=== PATIENT | female | born 1965 | race Caucasian/White ===

== ENCOUNTER 2017-06-25 17:27 | Emergency (ER) | payer MEDICAID, OTHER ==
[2017-06-25 18:27] VITALS: BP 137/72; PULSE 74; RESP 18; TEMP 98.2
--- NOTE | 2017-06-25 18:38 | ED ---
General Adult HPI - General Chief complaint: Fall Stated complaint: Right foot pain Time Seen by Provider: 06/25/17 18:02 Source: patient, RN notes reviewed Mode of arrival: wheelchair Limitations: no limitations, language barrier - History of Present Illness Initial comments: 51-year-old female presents for right foot pain after a trip and fall today and ice. She states it hurts along the toes of her foot. She states there is no other injury. She denies any head injury neck pain any arm pain. She states she has pain when she walks. She states this happened at work. She denies any other injuries at this time. Her pain is moderate.Patient denies any recent fever, chills, shortness of breath, chest pain, back pain, abdominal pain, nausea vomiting, numbness or tingling, dysuria or hematuria, constipation or diarrhea, headaches or visual changes, or any other current symptoms. - Related Data Home Medications Medication Instructions Recorded Confirmed Doxycycline [Vibramycin] 100 mg PO DAILY 06/18/15 06/25/17 Naproxen Sodium [Aleve] 440 mg PO DAILY 06/18/15 06/25/17 Sertraline [Zoloft] 200 mg PO DAILY 06/18/15 06/25/17 Previous Rx's Medication Instructions Recorded Hydrocodone/Acetaminophen [[place]uburn 1 each PO Q6HR PRN #5 tab 06/25/17 5-325] Allergies Allergy/AdvReac Type Severity Reaction Status Date / Time NEOPRENE AdvReac Rash/Hives Uncoded 06/25/17 18:27 Review of Systems ROS Statement: Those systems with pertinent positive or pertinent negative responses have been documented in the HPI. ROS Other: All systems not noted in ROS Statement are negative. Past Medical History Past Medical History: No Reported History, Osteoarthritis (OA) History of Any Multi-Drug Resistant Organisms: None Reported Past Surgical History: Orthopedic Surgery Additional Past Surgical History / Comment(s): RIGHT KNEE ARTHROSCOPIC Past Anesthesia/Blood Transfusion Reactions: No Reported Reaction Past Psychological History: Depression Smoking Status: Former smoker - Past Family History Mother Family Medical History: No Reported History General Exam - General Exam Comments Initial Comments: General: The patient is awake and alert, in no distress, and does not appear acutely ill. Neck: The neck is supple, there is no tenderness. Cardiovascular: There is a regular rate and rhythm. No murmur, rub or gallop is appreciated. Respiratory: Lungs are clear to auscultation, respirations are non-labored, breath sounds are equal. No wheezes, stridor, rales, or rhonchi. Musculoskeletal: Sensation intact with 2+ pulses throughout the right lower extremity. Full range motion of right ankle and foot.. Tenderness to palpation of the fourth and fifth metacarpal. Patient has full range motion. No swelling no bruising no deformity. Neurological: CN II-XII intact, There are no obvious motor or sensory deficits. Coordination appears grossly intact. Speech is normal. Skin: Skin is warm and dry and no rashes or lesions are noted. Psychiatric: Normal mood and affect. Limitations: no limitations, language barrier Course Vital Signs 06/25/17 18:23 Temperature 98.2 F Pulse Rate 74 Respiratory 18 Rate Blood Pressure 137/72 O2 Sat by Pulse 97 Oximetry Procedures - Orthopedic Splinting/Casting Injury #1 Side: right Lower Extremity Injury Location: short leg, foot Lower Extremity Immobilizer: posterior splint Medical Decision Making - Medical Decision Making 51-year-old female presents for right foot pain after trip and fall. At this time patient underwent an x-ray that does show metacarpal fracture. This time she does have crutches at home. This time we discussed close follow-up with her doctor. We discussed return parameters all questions. Patient stated that she understood and she is agreement this plan. All questions have been answered. She'll be discharged. - Radiology Data Radiology results: report reviewed, image reviewed Disposition Clinical Impression: Fracture of metatarsal of right foot, closed Disposition: HOME SELF-CARE Condition: Stable Instructions: Foot Fracture in Adults (ED) Additional Instructions: Please use medication as discussed. Please follow up with family doctor if symptoms have not improved over the next two days. Please return to the emergency room if your symptoms increase or worsen or for any other concerns. Prescriptions: Hydrocodone/Acetaminophen [Auburn 5-325] 1 each PO Q6HR PRN #5 tab PRN Reason: Pain Referrals: Easton Ford MD [Primary Care Provider] - 1-2 days Marco Breaux MD [STAFF PHYSICIAN] - 1-2 days Time of Disposition: 19:05
--- NOTE | 2017-06-25 18:55 | XR ---
EXAMINATION TYPE: XR foot complete RT DATE OF EXAM: 06/25/2017 CLINICAL HISTORY: Right metatarsal pain after injury TECHNIQUE: Frontal, lateral, and oblique images of the right foot are obtained. COMPARISON: None FINDINGS: There are medially angulated, noncomminuted, nonintra-articular fractures of the distal myles physes of the second through fourth metatarsals with overlying soft tissue swelling. Accessory ossicl e is seen near the fifth metatarsal head. No radiopaque foreign body. Osseous mineralization is withi n normal limits. IMPRESSION: Medially angulated, noncomminuted, nonintra-articular fractures of the distal diaphyses o f the second through fourth metatarsals with overlying soft tissue swelling.
== END 2017-06-25 19:15 | disposition home or self-care (01) ==
LOC: EC 17:27
DX: S92.301A Fracture of unspecified metatarsal bone(s), right foot, initial encounter for closed fracture (principal); M19.90 Unspecified osteoarthritis, unspecified site; F32.9 Major depressive disorder, single episode, unspecified; Z87.891 Personal history of nicotine dependence; Z79.1 Long term (current) use of non-steroidal anti-inflammatories (NSAID); Z79.899 Other long term (current) drug therapy; Z91.048 Other nonmedicinal substance allergy status; W01.0XXA Fall on same level from slipping, tripping and stumbling without subsequent striking against object, initial encounter; Y92.69 Other specified industrial and construction area as the place of occurrence of the external cause; Y99.0 Civilian activity done for income or pay
CPT/HCPCS: 29515; 99283

== ENCOUNTER → 2017-09-07 | Outpatient (CLI) | payer MEDICAID ==
[2017-09-07 08:12] LABS: Basophils % (A) 1 %; Eosinophils # (A) 0.1 k/uL (0-0.7); Eosinophils % (A) 2 %; HCT 36.9 % (34.0-46.0); HGB 12.3 gm/dL (11.4-16.0); Lymphocytes # (A) 1.6 k/uL (1.0-4.8); Lymphocytes % (A) 31 %; MCH 26.7 pg (25.0-35.0); MCHC 33.4 g/dL (31.0-37.0); Mean Platelet Volume 7.1; Monocytes # (A) 0.3 k/uL (0-1.0); Monocytes % (A) 5 %; Neutrophils % (A) 59 %; Platelet Count 187 k/uL (150-450); RBC 4.61 m/uL (3.80-5.40); WBC 5.1 k/uL (3.8-10.6)
[2017-09-07 10:36] LABS: ALT 31 U/L (9-52); AST 24 U/L (14-36); Albumin 4.4 g/dL (3.5-5.0); Alkaline Phosphatase 73 U/L (38-126); Anion Gap 15 mmol/L; Blood Urea Nitrogen 20 mg/dL (7-17); C Reactive Protein <5.0 mg/L (<10.0); Calcium 9.9 mg/dL (8.4-10.2); Carbon Dioxide 26 mmol/L (22-30); Chloride 102 mmol/L (98-107); Cholesterol 205 mg/dL (<200); Glucose 110 mg/dL (74-99); HDL Cholesterol 48 mg/dL (40-60); LDL Cholesterol,Calculated 126 mg/dL (0-99); Potassium 4.6 mmol/L (3.5-5.1); Sodium 143 mmol/L (137-145); Total Bilirubin 0.3 mg/dL (0.2-1.3); Total Protein 7.3 g/dL (6.3-8.2); Triglycerides 155 mg/dL (<150)
[2017-09-07 13:04] LABS: Erythrocyte Sedimentation Rate 15 mm/hr (0-20)
== END | disposition home or self-care (01) ==
LOC: LABWHC1 07:16
PROVIDERS: ATTEND Family Medicine
DX: F43.21 Adjustment disorder with depressed mood (principal); R53.83 Other fatigue
CPT/HCPCS: 36415; 80053; 80061; 84443; 85025; 85652; 86140

== ENCOUNTER → 2018-05-02 | Outpatient (CLI) | payer MEDICAID | LOC: LABWHC1 10:58 | PROVIDERS: ATTEND Family Medicine | DX: M19.90 Unspecified osteoarthritis, unspecified site (principal); M25.50 Pain in unspecified joint | CPT/HCPCS: 36415; 85652; 86431 ==

== ENCOUNTER → 2018-12-06 | Outpatient (CLI) | payer MEDICAID ==
[2018-12-06 09:37] LABS: Basophils % (A) 1 %; Eosinophils # (A) 0.1 k/uL (0-0.7); Eosinophils % (A) 2 %; HCT 37.1 % (34.0-46.0); HGB 11.9 gm/dL (11.4-16.0); Lymphocytes # (A) 1.6 k/uL (1.0-4.8); Lymphocytes % (A) 32 %; MCH 25.6 pg (25.0-35.0); MCHC 32.2 g/dL (31.0-37.0); MCV 79.6 fL (80.0-100.0); Mean Platelet Volume 6.7; Monocytes # (A) 0.3 k/uL (0-1.0); Monocytes % (A) 6 %; Neutrophils # (A) 2.9 k/uL (1.3-7.7); Neutrophils % (A) 57 %; Platelet Count 187 k/uL (150-450); RBC 4.66 m/uL (3.80-5.40); RDW 14.9 % (11.5-15.5); WBC 5.1 k/uL (3.8-10.6)
[2018-12-06 16:56] LABS: African American GFR (CKD) 118.9 (60.0-200.0); BUN/Creat Ratio 28.33 Ratio (12.00-20.00); Calcium 9.8 mg/dL (8.7-10.3); Potassium 4.9 mmol/L (3.5-5.5)
== END | disposition home or self-care (01) ==
LOC: LABWHC1 08:54
PROVIDERS: ATTEND Family Medicine
DX: E11.9 Type 2 diabetes mellitus without complications (principal); E78.00 Pure hypercholesterolemia, unspecified; Z79.899 Other long term (current) drug therapy
CPT/HCPCS: 36415; 80048; 80061; 84439; 84450; 84460; 85025

== ENCOUNTER → 2019-07-17 | Outpatient (CLI) | payer MEDICAID ==
[2019-07-17 11:43] LABS: Basophils % (A) 1 %; Eosinophils # (A) 0.1 k/uL (0-0.7); Eosinophils % (A) 2 %; HCT 39.4 % (34.0-46.0); HGB 12.7 gm/dL (11.4-16.0); Lymphocytes # (A) 1.6 k/uL (1.0-4.8); Lymphocytes % (A) 29 %; MCH 26.2 pg (25.0-35.0); MCHC 32.3 g/dL (31.0-37.0); Mean Platelet Volume 7.5; Monocytes # (A) 0.3 k/uL (0-1.0); Monocytes % (A) 6 %; Neutrophils # (A) 3.1 k/uL (1.3-7.7); Neutrophils % (A) 58 %; Platelet Count 197 k/uL (150-450); RBC 4.86 m/uL (3.80-5.40); RDW 14.7 % (11.5-15.5); WBC 5.3 k/uL (3.8-10.6)
[2019-07-17 16:01] LABS: African American GFR (CKD) 118.1 (60.0-200.0); Albumin 4.9 g/dL (3.80-4.90); Albumin/Globulin Ratio 2.33 (1.60-3.17); Anion Gap 9.3 mmol/L (4.00-12.00); BUN/Creat Ratio 18.33 Ratio (12.00-20.00); Calcium 9.8 mg/dL (8.7-10.3); Carbon Dioxide 27.7 mmol/L (21.6-31.8); Chol/HDL Ratio 4.12; Globulin 2.1 g/dL (1.6-3.3); LDL Cholesterol,Calculated 128.6 mg/dL (0.0-131.0); Non-African American GFR(CKD) 101.9 (60.0-200.0); Potassium 4.8 mmol/L (3.5-5.5); Total Bilirubin 0.4 mg/dL (0.3-1.2); VLDL Calculation 27.4 mg/dL (5.00-40.00)
== END | disposition home or self-care (01) ==
LOC: LABWHC1 10:42
PROVIDERS: ATTEND Family Medicine
DX: E78.00 Pure hypercholesterolemia, unspecified (principal); E11.9 Type 2 diabetes mellitus without complications; I10 Essential (primary) hypertension
CPT/HCPCS: 36415; 80053; 80061; 84443; 85025

== ENCOUNTER → 2021-02-02 | Outpatient (CLI) | payer MEDICAID ==
--- NOTE | 2021-02-02 08:25 | US ---
EXAMINATION TYPE: US gallbladder DATE OF EXAM: 02/02/2021 COMPARISON: NONE CLINICAL HISTORY: R19.01 Right upper quadrant abdominal swelling. EXAM MEASUREMENTS: Liver Length: 15.7 cm Gallbladder Wall: 0.1 cm CBD: 0.5 cm Right Kidney: 15.5 x 4.5 x 6.0 cm RUQ pain, patient of large body habitus Pancreas: portions visualized wnl Liver: Increased attenuation Gallbladder: wnl Evidence for sonographic Mai's sign: no CBD: wnl Right Kidney: measures large IMPRESSION: 1. Normal abdomen ultrasound
== END | disposition home or self-care (01) ==
LOC: RADUSWWP 07:40
PROVIDERS: ATTEND Family Medicine
DX: R19.01 Right upper quadrant abdominal swelling, mass and lump (principal)
CPT/HCPCS: 76705

== ENCOUNTER 2021-03-26 12:08 | Emergency (ER) | payer MEDICAID ==
[2021-03-26 12:30] VITALS: RESP 20
[2021-03-26] MEDS ORDERED: HYDROcodone/APAP 5-325MG 1 EACH TAB PO STA (13:20)
[2021-03-26] MEDS ORDERED: DIPH,PERTUS(ACELL)TETVAC-LF 0.5 ML VIAL IM ONE (13:41)
--- NOTE | 2021-03-26 13:43 | ED ---
General Adult HPI - General Chief complaint: Fall Stated complaint: fall - right cheek laceration; right knee pain Time Seen by Provider: 03/26/21 12:35 Source: patient Mode of arrival: wheelchair Limitations: no limitations - History of Present Illness Initial comments: 55-year-old female presents to the emergency room for a chief complaint of fall. Patient was carrying a glass bowl when she tripped over a shoe and fell. Patient hit the right side of her face on the ground. No loss of consciousness. Patient also injured the right knee. States it is painful to walk on.Patient has no other complaints at this time including shortness of breath, chest pain, abdominal pain, nausea or vomiting, headache, or visual changes. - Related Data Home Medications Medication Instructions Recorded Confirmed Doxycycline [Vibramycin] 100 mg PO DAILY 06/18/15 06/25/17 Naproxen Sodium [Aleve] 440 mg PO DAILY 06/18/15 06/25/17 Sertraline [Zoloft] 200 mg PO DAILY 06/18/15 06/25/17 Previous Rx's Medication Instructions Recorded Hydrocodone/Acetaminophen [Buford 1 each PO Q6HR PRN #5 tab 06/25/17 5-325] Doxycycline [Vibramycin] 100 mg PO BID 10 Days #20 capsule 03/26/21 HYDROcodone/APAP 5-325MG [Buford 1 tab PO Q6HR PRN #10 tab 03/26/21 5-325] Allergies Allergy/AdvReac Type Severity Reaction Status Date / Time codeine Allergy Rash/Hives Verified 03/26/21 12:31 Penicillins AdvReac Rash/Hives Verified 03/26/21 14:56 NEOPRENE AdvReac Rash/Hives Uncoded 03/26/21 12:30 Review of Systems ROS Statement: Those systems with pertinent positive or pertinent negative responses have been documented in the HPI. ROS Other: All systems not noted in ROS Statement are negative. Past Medical History Past Medical History: Osteoarthritis (OA) History of Any Multi-Drug Resistant Organisms: None Reported Past Surgical History: Orthopedic Surgery Additional Past Surgical History / Comment(s): RIGHT KNEE ARTHROSCOPIC Past Anesthesia/Blood Transfusion Reactions: No Reported Reaction Past Psychological History: Depression Smoking Status: Former smoker Past Alcohol Use History: Occasional Past Drug Use History: None Reported - Past Family History Mother Family Medical History: No Reported History General Exam Limitations: no limitations General appearance: alert, in no apparent distress Head exam: Present: atraumatic Eye exam: Present: PERRL, EOMI, other (Patient does have right-sided inferior periorbital ecchymosis mild.). Absent: scleral icterus, conjunctival injection, periorbital swelling ENT exam: Present: normal exam, normal oropharynx, mucous membranes moist, other (Ecchymosis of abrasion noted over the right zygomatic bone) Neck exam: Present: normal inspection, full ROM. Absent: tenderness Respiratory exam: Present: normal lung sounds bilaterally. Absent: respiratory distress, wheezes Cardiovascular Exam: Present: regular rate, normal rhythm, normal heart sounds GI/Abdominal exam: Present: soft, normal bowel sounds. Absent: distended, tenderness Course Vital Signs 03/26/21 12:27 Temperature 98.6 F Pulse Rate 82 Respiratory 20 Rate Blood Pressure 140/85 O2 Sat by Pulse 99 Oximetry Medical Decision Making - Medical Decision Making Vitals are stable. Patient is well-appearing. Physical exam is documented. Pt refused pain medication initially. CT brain shows no mass effect or midline shift. No sign of intracranial hemorrhage. CT brain shows mild spondylitic changes in the lower cervical spine. No fracture seen. CT facial bones shows a blowout fracture of the floor of the right bony orbit as above with hemorrhage in the right maxillary sinus and intraorbital air bubbles with hemorrhage at the floor and medial wall of the right bony orbit. Extraocular movements intact. IOP of the right eye is 18, left eye 17. Patient will be started on Augmentin and given ENT referral. X-ray of the right knee showed moderate joint effusion with no sign of fracture. Patient given knee immobilizer and orthopedic referral. Usually discharged home with Buford. Will return here for any worsening symptoms. Case discussed with Dr. Nolasco Disposition Clinical Impression: Orbital floor fracture, Knee joint effusion Disposition: HOME SELF-CARE Condition: Good Instructions (If sedation given, give patient instructions): Facial Fracture (ED), Knee Pain (ED) Additional Instructions: Please take Motrin as needed for pain. Take Buford as needed for severe pain. Do not drive while taking this. Follow-up with your doctor as well as ENT and orthopedics. Return to the emergency room for any worsening symptoms. Prescriptions: HYDROcodone/APAP 5-325MG [Buford 5-325] 1 tab PO Q6HR PRN #10 tab PRN Reason: Pain Doxycycline [Vibramycin] 100 mg PO BID 10 Days #20 capsule Is patient prescribed a controlled substance at d/c from ED?: Yes When asked, does pt state using other controlled substances?: No If prescribed controlled substance>3 days was MAPS reviewed?: Prescribed <3 Days If opioid is for acute pain is fill amount 7 days or less?: Yes If Rx opioid, was Start Talking consent form obtained?: Yes Referrals: Juan Saunders Jr, DO [Primary Care Provider] - 1-2 days Go Moreno MD [STAFF PHYSICIAN] - 1-2 days Josh Evans DO [Doctor of Osteopathic Medicine] - 1-2 days Time of Disposition: 14:52
--- NOTE | 2021-03-26 14:09 | XR ---
Right knee. HISTORY: Trauma. COMPARISON: None. TECHNIQUE: 4 views the right knee were obtained. FINDINGS: There is moderate diffuse osteopenia. There is a moderate joint effusion. There is moderate osteoarthritic change of all 3 compartments of the knee with moderate joint space n arrowing and mild large adrenal osteophyte formation. There is no acute fracture or dislocation. There is no radiopaque foreign body or abnormal soft tissu e calcification. IMPRESSION: 1. No evidence of acute fracture or dislocation. 2. Moderate joint effusion. 3. Osteoarthritic changes within all 3 compartments of the knee.
--- NOTE | 2021-03-26 14:21 | CT ---
EXAMINATION TYPE: CT facial bones wo con DATE OF EXAM: 03/26/2021 COMPARISON: None HISTORY: fall CT DLP: 790.1 mGycm Automated exposure control for dose reduction was used. Images obtained from the bottom of the mandible to the top of the frontal sinuses without contrast. The mandibular ring is intact. Temporomandibular joints are intact. Zygomatic arches appear intact. There is opacification of the right maxillary sinus. There is blowout fracture at the floor of the ri ght bony orbit. There is some depression of the fragment 5 mm with herniation of orbital fat into the right maxillary sinus. There is intraorbital air bubbles at the floor of the right bony orbit. There is some intraorbital hemorrhage along the medial and inferior wall of the right bony orbit and measu res up to 3 mm in thickness. The nasal bone is intact. The external auditory canals appear intact. There is fairly normal aeration of the mastoid sinuses. There is normal aeration of the epitympanic recess bilaterally. IMPRESSION: Blowout fracture of the floor the right bony orbit as above with hemorrhage in the right maxillary si nus and intraorbital air bubbles and hemorrhage at the floor and medial wall of the right bony orbit.
--- NOTE | 2021-03-26 14:26 | CT ---
EXAMINATION TYPE: CT brain cspine wo con DATE OF EXAM: 03/26/2021 COMPARISON: None HISTORY: fall CT DLP: 1219.7 mGycm Automated exposure control for dose reduction was used. Ventricles have normal size. There is no mass effect nor midline shift. There is no sign of intracran ial hemorrhage. Calvarium is intact. There is normal aeration of the mastoid sinuses. There is right orbital blowout fracture that is described in the facial bone CT report. The cervical vertebra have normal alignment. Posterior elements are intact. There is degenerative mil d disc space narrowing and spur formation at C5-6 and C6-7. Facet joints are intact. Prevertebral sof t tissues are intact. Skull base is intact. IMPRESSION: Mild spondylotic changes in the lower cervical spine. No fracture seen.
[2021-03-26] MEDS ORDERED: AMOXIC-POT CLAV 875MG STARTER PACK 2 TAB BTL PO STA (14:47)
[2021-03-26] MEDS ORDERED: ONDANSETRON 4 MG ODT STARTER PACK 2 TAB BTL PO STA (15:08)
[2021-03-26 15:54] VITALS: BP 136/86; PULSE 76; TEMP 98.1
== END 2021-03-26 15:30 | disposition home or self-care (01) ==
LOC: EC 12:08
DX: S02.31XA Fracture of orbital floor, right side, initial encounter for closed fracture (principal); M25.461 Effusion, right knee; Z87.891 Personal history of nicotine dependence; Z23 Encounter for immunization; Z88.0 Allergy status to penicillin; Z88.8 Allergy status to other drugs, medicaments and biological substances; Z88.5 Allergy status to narcotic agent; W18.09XA Striking against other object with subsequent fall, initial encounter; Y93.89 Activity, other specified; Y92.009 Unspecified place in unspecified non-institutional (private) residence as the place of occurrence of the external cause
CPT/HCPCS: 73564; 72125; 70486; 70450; 90715; 99284; 90471; L1830; S0119

== ENCOUNTER → 2021-04-11 | Outpatient (CLI) | payer MEDICAID ==
--- NOTE | 2021-04-11 19:39 | MR ---
EXAMINATION TYPE: MR knee RT wo con DATE OF EXAM: 04/11/2021 COMPARISON: Plain film 04/07/2021 HISTORY: Right knee pain, patellar tendon rupture, and swelling since 03-26-21. TECHNIQUE: Multiplanar, multisequence imaging of the right knee is performed without IV contrast. FINDINGS: There is motion, artifact on the exam MEDIAL MENISCUS: Linear increased signal at the inferior aspect of the medial meniscus posterior horn is noted, sagittal image 10 consistent with tear LATERAL MENISCUS: Posterior horn of the lateral meniscus shows linear increased signal which is thoug ht to extend to the articular surface, sagittal image #27 CRUCIATE LIGAMENTS: Increased signal within the posterior cruciate ligament may be due to chronic deg enerative signal rather than strain. COLLATERAL LIGAMENTS: The medial collateral ligament and lateral collateral ligament complex are inta ct and unremarkable. EXTENSOR MECHANISM: Visualized quadriceps and patellar tendons are intact. EFFUSION: There is a sizable joint effusion present. POPLITEAL CYST: No popliteal/nascimento cyst. TRICOMPARTMENT SPACES: Joint space loss is present at the medial compartment, patellofemoral joint, t ricompartmental marginal spurring CARTILAGE: There is grade 2 to grade III chondromalacia in the medial compartment, lateral compartmen t, grade IV chondromalacia posterior patella with remodeling BONE MARROW SIGNAL: Stellate low signal present within the patella, intermediate signal present on T1 and increased signal in T2-weighted sequences. OTHER: Subcutaneous edema changes present.. Possible ganglion cyst formation posterior to the distal femur, along the levels of the gastrocnemius origins, multilocular cystic changes are present IMPRESSION: There is osteoarthritis, probable degenerative tears of the menisci. Findings consistent with nondisp laced complex patellar fracture.
== END | disposition home or self-care (01) ==
LOC: RADMRIMAIN 17:53
PROVIDERS: ATTEND Orthopaedic Surgery Hand Surgery
DX: M17.11 Unilateral primary osteoarthritis, right knee (principal); M66.88 Spontaneous rupture of other tendons, other sites

== ENCOUNTER → 2021-08-10 | Outpatient (CLI) | payer MEDICAID ==
[2021-08-10 13:57] LABS: Basophils # (A) 0.04 X 10*3/uL (0.00-0.10); Basophils % (A) 0.9 %; Eosinophils # (A) 0.06 X 10*3/uL (0.04-0.35); Eosinophils % (A) 1.3 %; HCT 37.2 % (37.2-46.3); HGB 11.5 g/dL (12.0-15.0); Immature Grans, Automated 0.4 %; Lymphocytes # (A) 1.26 X 10*3/uL (0.90-5.00); Lymphocytes % (A) 28.1 %; MCH 25.3 pg (27.0-32.0); MCHC 30.9 g/dL (32.0-37.0); MCV 81.8 fL (80.0-97.0); Mean Platelet Volume 10.4 fL (9.5-12.2); Monocytes # (A) 0.42 X 10*3/uL (0.20-1.00); Monocytes % (A) 9.4 %; NRBC Per 100 WBC 0 /100 WBCS (0.0-0.0); Neutrophils # (A) 2.69 X 10*3/uL (1.80-7.70); Neutrophils % (A) 59.9 %; Platelet Count 140 X 10*3/uL (140-440); RBC 4.55 X 10*6/uL (4.10-5.20); RDW 14.7 % (11.5-14.5); WBC 4.49 X 10*3/uL (4.50-10.00)
[2021-08-10 14:52] LABS: ALT 16 U/L (8-44); AST 17 U/L (13-35); African American GFR (CKD) 123.6 (60.0-200.0); Albumin 4.6 g/dL (3.8-4.9); Albumin/Globulin Ratio 2.09 (1.60-3.17); Alkaline Phosphatase 90 U/L (41-126); Blood Urea Nitrogen 16.7 mg/dL (9.0-27.0); Calcium 9.4 mg/dL (8.7-10.3); Carbon Dioxide 24.7 mmol/L (20.0-27.5); Chloride 105 mmol/L (96-109); Chol/HDL Ratio 3.44 Ratio; Globulin 2.2 g/dL (1.6-3.3); Glucose 108 mg/dL (70-110); LDL Cholesterol,Calculated 109.9 mg/dL (0.0-131.0); Non-African American GFR(CKD) 106.7 (60.0-200.0); Potassium 4.7 mmol/L (3.5-5.5); Sodium 141 mmol/L (135-145); Total Bilirubin <0.15 mg/dL (0.30-1.20); Total Protein 6.8 g/dL (6.2-8.2); VLDL Calculation 15.02 mg/dL (5.00-40.00)
== END | disposition home or self-care (01) ==
LOC: LABWHC1 07:48
PROVIDERS: ATTEND Nurse Practitioner Family
DX: Z00.00 Encounter for general adult medical examination without abnormal findings (principal); Z13.21 Encounter for screening for nutritional disorder; E11.9 Type 2 diabetes mellitus without complications; E66.01 Morbid (severe) obesity due to excess calories; Z68.35 Body mass index [BMI] 35.0-35.9, adult
CPT/HCPCS: 36415; 80053; 80061; 82306; 84439; 84443; 85025

== ENCOUNTER → 2021-09-23 | Outpatient (CLI) | payer MEDICAID ==
--- NOTE | 2021-09-26 11:51 | MM ---
Reason for exam: screening (asymptomatic). Last mammogram was performed 7 years and 6 months ago. History: Patient is postmenopausal and is nulliparous. Physical Findings: A clinical breast exam by your physician is recommended on an annual basis and results should be correlated with mammographic findings. MG Screening Mammo w CAD Bilateral CC and MLO view(s) were taken. Prior study comparison: April 03, 2014, bilateral MG diagnostic mammo w CAD JASMIN. April 07, 2010, left breast mammogram dig work up. The breast tissue is heterogeneously dense. This may lower the sensitivity of mammography. There are benign appearing round calcifications bilaterally. There is no discrete abnormality. ASSESSMENT: Benign, BI-RAD 2 RECOMMENDATION: Routine screening mammogram of both breasts in 1 year.
== END | disposition home or self-care (01) ==
LOC: RADMAMWWP 06:52
PROVIDERS: ATTEND Family Medicine
DX: Z12.31 Encounter for screening mammogram for malignant neoplasm of breast (principal); Z78.0 Asymptomatic menopausal state
CPT/HCPCS: 77067

== ENCOUNTER → 2021-12-15 | Day surgery (SDC) | payer MEDICAID ==
[2021-12-13 16:03] VITALS: BMI 35.8
[~2021-12-15] MED LIST: DEXAMETHASONE SOD PHOSPHATE 4 MG/ML 1 ML VIAL IV ONE; GLYCOPYRROLATE 0.2 MG/ML 2 ML VIAL ONE; HYDROmorphone 0.5 MG/0.5 ML SYRINGE IVP PRN; LACTATED RINGERS 1,000 ML IV ONE; LACTATED RINGERS 1,000 ML IV SCH; LIDOCAINE 2% INJ 20 MG/ML (2 ML VIAL) ONE; ONDANSETRON 4 MG/2 ML VIAL IVP ONE; PROPOFOL 10 MG/ML 20 ML VIAL IV ONE
[2021-12-15 06:50] VITALS: TEMP 97.8
[2021-12-15 06:59] LABS: Glucose,Whole Blood 105 mg/dL (70-110)
--- NOTE | 2021-12-15 07:23 | P.GSHP ---
History of Present Illness H&P Date: 12/15/21 CHIEF COMPLAINT: Colon screen HISTORY OF PRESENT ILLNESS: The patient is a 56-year-old female who presents for colon screen. Lower endoscopy was offered for further evaluation and management. PAST MEDICAL HISTORY: Please see list. PAST SURGICAL HISTORY: Please see list. MEDICATIONS: Please see list. ALLERGIES: Please see list. SOCIAL HISTORY: No illicit drug use FAMILY HISTORY: No reports of Crohn disease or ulcerative colitis. REVIEW OF ORGAN SYSTEMS: CONSTITUTIONAL: No reports of fevers or chills. PHYSICAL EXAM: VITAL SIGNS: Stable GENERAL: Well-developed pleasant in no acute distress. HEENT: No scleral icterus. Extraocular movements grossly intact. Moist buccal mucosa. NECK: Supple without lymphadenopathy. CHEST: Unlabored respirations. Equal bilateral excursions. CARDIOVASCULAR: Regular rate and rhythm. Distal 2+ pulses. ABDOMEN: Soft, nontender, nondistended. MUSCULOSKELETAL: No clubbing, cyanosis, or edema. ASSESSMENT: 1. Colon screen. PLAN: 1. Recommend proceeding with a lower endoscopy Past Medical History Past Medical History: Osteoarthritis (OA) Additional Past Medical History / Comment(s): "borderline diabetes", Covid infection Apr 2021-received monoclonal antibodies. History of Any Multi-Drug Resistant Organisms: None Reported Past Surgical History: Orthopedic Surgery Additional Past Surgical History / Comment(s): RIGHT KNEE ARTHROSCOPIC Past Anesthesia/Blood Transfusion Reactions: No Reported Reaction Smoking Status: Former smoker - Past Family History Mother Family Medical History: No Reported History Additional Family Medical History / Comment(s): GI bleed Brother(s) Additional Family Medical History / Comment(s): COVID . Medications and Allergies Home Medications Medication Instructions Recorded Confirmed Type Sertraline [Zoloft] 100 mg PO BID 06/18/15 12/13/21 History Doxycycline [Vibramycin] 100 mg PO BID 10 Days #20 capsule 03/26/21 12/13/21 Rx Acetaminophen Tab [Tylenol Tab] 1,000 mg PO Q6HR PRN 12/13/21 12/13/21 History metFORMIN HCL 500 mg PO HS 12/13/21 12/13/21 History Allergies Allergy/AdvReac Type Severity Reaction Status Date / Time codeine Allergy Rash/Hives Verified 12/13/21 15:53 Penicillins AdvReac Rash/Hives Verified 12/13/21 15:53 NEOPRENE AdvReac Rash/Hives Uncoded 12/13/21 15:53 Surgical - Exam Vital Signs Temp Pulse Resp BP Pulse Ox 97.8 F 80 18 146/76 98 12/15/21 06:49 12/15/21 06:49 12/15/21 06:49 12/15/21 06:49 12/15/21 06:49
[2021-12-15 07:52] VITALS: RESP 16
--- NOTE | 2021-12-15 07:53 | P.PCN ---
Date of Procedure: 12/15/21 Description of Procedure: PREOPERATIVE DIAGNOSIS: Colonoscopy screening. POSTOPERATIVE DIAGNOSIS: Colonoscopy screening. Diverticulosis, scattered. OPERATION: Colonoscopy to the cecum, ileocecal valve and appendiceal orifice. SURGEON: Amberly Castano MD. ANESTHESIA: MAC. INDICATIONS: The patient is a 56-year-old female who presents for colonoscopy screening. Benefits and risks were described and informed consent was obtained. DESCRIPTION OF PROCEDURE: The patient had undergone Sutab prep. The patient had been brought into the operating room and laid in the left lateral decubitus position. After adequate intravenous sedation, the rectum was examined with 2% lidocaine jelly. No external hemorrhoids were encountered. The rectal tone was within normal limits. No lesions were palpated in the rectal vault. An Olympus colonoscope was advanced until the cecum, ileocecal valve and appendiceal orifice were clearly viewed. The prep was excellent. Scattered diverticulosis was encountered. No colonic polyps were found. No evidence of focal colitis was found. Retroflexion of the scope demonstrated grade 1 internal hemorrhoids without active bleeding or inflammation. The colon was desufflated. The patient had tolerated the procedure well. Withdrawal time was over 6 minutes. FINDINGS: Aronchick preparation quality scale 1 (1-5) Internal hemorrhoids, grade 1 No external prolapsed hemorrhoids. No arteriovenous malformations. No adenomatous polyps. No focal colitis. RECOMMENDATIONS: Lower endoscopy in 10 years, 2031 Plan - Discharge Summary Discharge Rx Participant: No New Discharge Prescriptions: Continue Sertraline [Zoloft] 100 mg PO BID Acetaminophen Tab [Tylenol] 1,000 mg PO Q6HR PRN PRN Reason: Pain Doxycycline [Vibramycin] 100 mg PO BID 10 Days #20 capsule metFORMIN HCL 500 mg PO HS Discharge Medication List Sertraline [Zoloft] 100 mg PO BID 06/18/15 [History] Doxycycline [Vibramycin] 100 mg PO BID 10 Days #20 capsule 03/26/21 [Rx] Acetaminophen Tab [Tylenol] 1,000 mg PO Q6HR PRN 12/13/21 [History] metFORMIN HCL 500 mg PO HS 12/13/21 [History] Follow up Appointment(s)/Referral(s): Amberly Castano MD [STAFF PHYSICIAN] - As Needed Patient Instructions/Handouts: *Surgery [facility] - (Anesthesia) Endoscopy Discharge Instructions Activity/Diet/Wound Care/Special Instructions: Repeat colonoscopy in 10 years, 2031 Discharge Disposition: HOME SELF-CARE
[2021-12-15 08:06] VITALS: BP 113/74; PULSE 69
== END | disposition home or self-care (01) ==
LOC: ORWHC2ENDO 06:37
PROVIDERS: ATTEND Surgery Plastic and Reconstructive Surgery
DX: Z12.11 Encounter for screening for malignant neoplasm of colon (principal); K57.30 Diverticulosis of large intestine without perforation or abscess without bleeding; K64.0 First degree hemorrhoids; Q27.33 Arteriovenous malformation of digestive system vessel; M19.90 Unspecified osteoarthritis, unspecified site; R73.03 Prediabetes; Z86.16 Personal history of COVID-19; Z87.891 Personal history of nicotine dependence; Z79.899 Other long term (current) drug therapy; Z79.84 Long term (current) use of oral hypoglycemic drugs; Z88.0 Allergy status to penicillin; Z88.5 Allergy status to narcotic agent; Z91.09 Other allergy status, other than to drugs and biological substances; F32.A Depression, unspecified
CPT/HCPCS: 45378; J2704; J2001

== ENCOUNTER → 2022-05-31 | Outpatient (CLI) | payer MEDICAID ==
[2022-05-31 20:26] LABS: African American GFR (CKD) 116.4 (60.0-200.0); Albumin 4.6 g/dL (3.8-4.9); Albumin/Globulin Ratio 1.64 (1.60-3.17); Anion Gap 9.8 mmol/L (10.00-18.00); BUN/Creat Ratio 15.33 Ratio (12.00-20.00); Blood Urea Nitrogen 9.2 mg/dL (9.0-27.0); Calcium 9.6 mg/dL (8.7-10.3); Carbon Dioxide 27.2 mmol/L (20.0-27.5); Globulin 2.8 g/dL (1.6-3.3); Non-African American GFR(CKD) 100.5 (60.0-200.0); Potassium 4.5 mmol/L (3.5-5.5); Total Bilirubin 0.3 mg/dL (0.30-1.20); Total Protein 7.4 g/dL (6.2-8.2)
== END | disposition home or self-care (01) ==
LOC: LABWHC1 10:48
PROVIDERS: ATTEND Nurse Practitioner Family
DX: E11.9 Type 2 diabetes mellitus without complications (principal)
CPT/HCPCS: 36415; 80053

== ENCOUNTER → 2022-09-06 | Outpatient (CLI) | payer MEDICAID ==
[2022-09-06 11:00] LABS: Basophils # (A) 0.07 X 10*3/uL (0.00-0.10); Basophils % (A) 1.3 %; Eosinophils # (A) 0.16 X 10*3/uL (0.04-0.35); Eosinophils % (A) 2.9 %; HGB 11.7 g/dL (12.0-15.0); Immature Grans, Automated 0.4 %; Lymphocytes # (A) 1.53 X 10*3/uL (0.90-5.00); Lymphocytes % (A) 27.4 %; MCH 25.2 pg (27.0-32.0); MCHC 30.8 g/dL (32.0-37.0); MCV 81.9 fL (80.0-97.0); Monocytes # (A) 0.57 X 10*3/uL (0.20-1.00); Monocytes % (A) 10.2 %; NRBC Per 100 WBC 0 /100 WBCS (0.0-0.0); Neutrophils # (A) 3.24 X 10*3/uL (1.80-7.70); Neutrophils % (A) 57.8 %; Platelet Count 163 X 10*3/uL (140-440); RBC 4.64 X 10*6/uL (4.10-5.20); RDW 15.2 % (11.5-14.5); WBC 5.59 X 10*3/uL (4.50-10.00)
[2022-09-06 11:20] LABS: ALT 29 U/L (8-44); AST 23 U/L (13-35); African American GFR (CKD) 113.8 (60.0-200.0); Albumin 4.8 g/dL (3.8-4.9); Albumin/Globulin Ratio 2.06 (1.60-3.17); Alkaline Phosphatase 88 U/L (41-126); BUN/Creat Ratio 23.65 Ratio (12.00-20.00); Blood Urea Nitrogen 14.9 mg/dL (9.0-27.0); Calcium 9.5 mg/dL (8.7-10.3); Carbon Dioxide 26.2 mmol/L (20.0-27.5); Chloride 103 mmol/L (96-109); Chol/HDL Ratio 2.88 Ratio; Globulin 2.3 g/dL (1.6-3.3); Glucose 130 mg/dL (70-110); Non-African American GFR(CKD) 98.2 (60.0-200.0); Potassium 4.7 mmol/L (3.5-5.5); Sodium 140 mmol/L (135-145); Total Protein 7.1 g/dL (6.2-8.2)
== END | disposition home or self-care (01) ==
LOC: LABWHC1 07:32
PROVIDERS: ATTEND Nurse Practitioner Family
DX: Z00.00 Encounter for general adult medical examination without abnormal findings (principal); E66.01 Morbid (severe) obesity due to excess calories; E11.9 Type 2 diabetes mellitus without complications; E55.9 Vitamin D deficiency, unspecified; Z68.38 Body mass index [BMI] 38.0-38.9, adult
CPT/HCPCS: 36415; 80053; 80061; 82306; 83036; 84439; 84443; 85025

== ENCOUNTER 2022-11-29 09:50 | Emergency (ER) | payer OTHER, MEDICAID ==
[2022-11-29 10:07] VITALS: TEMP 98.2
[2022-11-29] MEDS ORDERED: LIDOCAINE 5% PATCH TOPICAL STA (10:55)
--- NOTE | 2022-11-29 11:07 | XR ---
EXAMINATION TYPE: XR ribs RT w pa chest xray DATE OF EXAM: 11/29/2022 COMPARISON: None HISTORY: Fall, pain right side TECHNIQUE: AP chest and two-view right ribs FINDINGS: Heart size normal. Pulmonary vasculature is normal. The lungs are clear. No pneumothorax is evident Ribs appear intact. No acute fracture is evident. IMPRESSION: 1. No acute osseous abnormality right ribs
--- NOTE | 2022-11-29 11:33 | ED ---
Fall HPI - General Chief Complaint: Fall Stated Complaint: fall-[facility] Time Seen by Provider: 11/29/22 10:19 Source: patient Mode of arrival: ambulatory - History of Present Illness Initial Comments: Patient is a 57-year-old female presents to emergency department for evaluation of right-sided rib pain after fall. She fell on at work. No head injury or loss of consciousness. She reports minimal improvement of pain. She was sent by [facility] for further evaluation of possible rib fracture/liver contusion. Denies chest pain and shortness of breath. Denies abdominal pain, vomiting. - Related Data Home Medications Medication Instructions Recorded Confirmed Sertraline [Zoloft] 100 mg PO BID 06/18/15 12/13/21 Acetaminophen Tab [Tylenol] 1,000 mg PO Q6HR PRN 12/13/21 12/13/21 metFORMIN HCL 500 mg PO HS 12/13/21 12/13/21 Previous Rx's Medication Instructions Recorded Doxycycline [Vibramycin] 100 mg PO BID 10 Days #20 capsule 03/26/21 Cyclobenzaprine [Flexeril] 5 mg PO TID PRN #12 tablet 11/29/22 Ibuprofen [Motrin] 800 mg PO Q8HR PRN #30 tab 11/29/22 Lidocaine 5% Patch [Lidoderm 5% 1 patch TOPICAL DAILY PRN #7 patch 11/29/22 Patch] Allergies Allergy/AdvReac Type Severity Reaction Status Date / Time codeine Allergy Rash/Hives Verified 12/13/21 15:53 diphenhydramine AdvReac Unknown Verified 11/29/22 10:07 [From Benadryl Allergy] Penicillins AdvReac Rash/Hives Verified 12/13/21 15:53 NEOPRENE AdvReac Rash/Hives Uncoded 12/13/21 15:53 Review of Systems ROS Statement: Those systems with pertinent positive or pertinent negative responses have been documented in the HPI. ROS Other: All systems not noted in ROS Statement are negative. Past Medical History Past Medical History: Osteoarthritis (OA) Additional Past Medical History / Comment(s): "borderline diabetes", Covid infection Apr 2021-received monoclonal antibodies. History of Any Multi-Drug Resistant Organisms: None Reported Past Surgical History: Orthopedic Surgery Additional Past Surgical History / Comment(s): RIGHT KNEE ARTHROSCOPIC Past Anesthesia/Blood Transfusion Reactions: No Reported Reaction Past Psychological History: Depression Smoking Status: Former smoker - Past Family History Mother Family Medical History: No Reported History Additional Family Medical History / Comment(s): GI bleed Brother(s) Additional Family Medical History / Comment(s): COVID . General Exam Limitations: no limitations General appearance: alert, in no apparent distress Respiratory exam: Present: normal lung sounds bilaterally, chest wall tenderness (right lateral middle ribs). Absent: respiratory distress, wheezes, rales, rhonchi, stridor Cardiovascular Exam: Present: regular rate, normal rhythm, normal heart sounds. Absent: systolic murmur, diastolic murmur, rubs, gallop, clicks GI/Abdominal exam: Present: soft, normal bowel sounds. Absent: distended, tenderness, guarding, rebound, rigid Neurological exam: Present: alert, oriented X3, CN II-XII intact Psychiatric exam: Present: normal affect, normal mood Skin exam: Present: warm, dry, intact, normal color. Absent: rash Course Vital Signs 11/29/22 11/29/22 10:04 11:46 Temperature 98.2 F 98.2 F Pulse Rate 72 70 Respiratory 18 16 Rate Blood Pressure 162/90 150/79 O2 Sat by Pulse 96 97 Oximetry Medical Decision Making - Medical Decision Making Was pt. sent in by a medical professional or institution ([facility] [place], FILM LIBRARY CLERK, urgent care, hospital, or prison...) When possible be specific @ -[facility] today Did you speak to anyone other than the patient for history (EMS, parent, family, police, friend...)? What history was obtained from this source @ -[No] Did you review nursing and triage notes (agree or disagree)? Why? @ -[I reviewed and agree with nursing and triage notes] Were old charts reviewed (outside hosp., previous admission, EMS record, old EKG, old radiological studies, urgent care reports/EKG's, prison records)? Report findings @ -[No old charts were reviewed] Differential Diagnosis (chest pain, altered mental status, abdominal pain women, abdominal pain men, vaginal bleeding, weakness, fever, dyspnea, syncope, headache, dizziness, GI bleed, back pain, seizure, CVA, palpatations, mental health)? @ -Rib fracture, rib contusion, pneumothorax. This is not meant to be all- inclusive EKG interpreted by me (3pts min.). @ -[As above] X-rays interpreted by me (1pt min.). @No evidence of rib fracture CT interpreted by me (1pt min.). @ -[None done] U/S interpreted by me (1pt. min.). @ -[None done] What testing was considered but not performed or refused? (CT, X-rays, U/S, labs)? Why? @ -[None] What meds were considered but not given or refused? Why? @ -[None] Did you discuss the management of the patient with other professionals (professionals i.e. , PA, FILM LIBRARY CLERK, lab, RT, psych nurse, forensic social worker, golf club head inspector, teacher, field artillery officer, case monitor)? Give summary @ -[No] Was smoking cessation discussed for >3mins.? @ -[No] Was critical care preformed (if so, how long)? @ -[No] Were there social determinants of health that impacted care today? How? (Homelessness, low income, unemployed, alcoholism, drug addiction, transportation, low edu. Level, literacy, decrease access to med. care, custodial, rehab)? @ -[No] Was there de-escalation of care discussed even if they declined (Discuss DNR or withdrawal of care, Hospice)? DNR status @ -[No] What co-morbidities impacted this encounter? (DM, HTN, Smoking, COPD, CAD, Cancer, CVA, ARF, Chemo, Hep., AIDS, mental health diagnosis, sleep apnea, morbid obesity)? @ -[None] Was patient admitted / discharged? Hospital course, mention meds given and route, prescriptions, significant lab abnormalities, going to OR and other pertinent info. @Discharged Undiagnosed new problem with uncertain prognosis? @ -[No] Drug Therapy requiring intensive monitoring for toxicity (Heparin, Nitro, Insulin, Cardizem)? @ -[No] Were any procedures done? @ -[No] Diagnosis/symptom? @ -Fall, right rib pain Acute, or Chronic, or Acute on Chronic? @ -[default] Uncomplicated (without systemic symptoms) or Complicated (systemic symptoms)? @ -[default] Side effects of treatment? @ -[No] Exacerbation, Progression, or Severe Exacerbation? @ -[No] Poses a threat to life or bodily function? How? (Chest pain, [place], [place], pneumonia, PE, COPD, DKA, ARF, appy, cholecystitis, CVA, Diverticulitis, Homicidal, Suicidal, threat to staff... and all critical care pts) @ -[No] Disposition Clinical Impression: Fall, Rib pain on right side Disposition: HOME SELF-CARE Condition: Good Instructions (If sedation given, give patient instructions): Rib Contusion (ED) Additional Instructions: Take medication as directed. Do not operate machinery or drink alcohol while taking Flexeril as it can cause drowsiness. Follow-up with [facility] in one to 2 days. Return to the emergency department if you experience new, concerning, or worsening symptoms. Prescriptions: Cyclobenzaprine [Flexeril] 5 mg PO TID PRN #12 tablet PRN Reason: Pain Lidocaine 5% Patch [Lidoderm 5% Patch] 1 patch TOPICAL DAILY PRN #7 patch PRN Reason: Pain Ibuprofen [Motrin] 800 mg PO Q8HR PRN #30 tab PRN Reason: Pain Is patient prescribed a controlled substance at d/c from ED?: No Referrals: Juan Saunders Jr, DO [Primary Care Provider] - 1-2 days
[2022-11-29 11:48] VITALS: BP 150/79; PULSE 70; RESP 16
== END 2022-11-29 11:48 | disposition home or self-care (01) ==
LOC: EC 09:50
DX: R07.81 Pleurodynia (principal); F32.A Depression, unspecified; M19.90 Unspecified osteoarthritis, unspecified site; Z79.899 Other long term (current) drug therapy; Z87.891 Personal history of nicotine dependence; Z88.0 Allergy status to penicillin; Z88.8 Allergy status to other drugs, medicaments and biological substances; W18.30XA Fall on same level, unspecified, initial encounter
CPT/HCPCS: 99284

== ENCOUNTER → 2023-04-30 | Outpatient (CLI) | payer MEDICAID ==
[2023-04-30 11:02] LABS: Basophils # (A) 0.04 X 10*3/uL (0.00-0.10); Basophils % (A) 0.8 %; Eosinophils # (A) 0.07 X 10*3/uL (0.04-0.35); Eosinophils % (A) 1.4 %; HGB 11.7 g/dL (12.0-15.0); Lymphocytes # (A) 1.39 X 10*3/uL (0.90-5.00); Lymphocytes % (A) 28.7 %; MCH 25.4 pg (27.0-32.0); MCHC 30.8 g/dL (32.0-37.0); MCV 82.6 FL (80.0-97.0); Monocytes # (A) 0.34 X 10*3/uL (0.20-1.00); NRBC Per 100 WBC 0 X 10*3/uL (0.00-0.01); Neutrophils # (A) 2.98 X 10*3/uL (1.80-7.70); Neutrophils % (A) 61.7 %; Platelet Count 169 X 10*3/uL (140-440); WBC 4.84 X 10*3/uL (4.50-10.00)
== END | disposition home or self-care (01) ==
LOC: LABWHC1 07:14
PROVIDERS: ATTEND Family Medicine
DX: E55.9 Vitamin D deficiency, unspecified (principal); D64.9 Anemia, unspecified
CPT/HCPCS: 36415; 82306; 85025

== ENCOUNTER → 2023-07-02 | Outpatient (CLI) | payer MEDICAID ==
--- NOTE | 2023-07-02 12:19 | XR ---
EXAMINATION TYPE: XR chest 2V DATE OF EXAM: 07/02/2023 COMPARISON: 11/29/2022 INDICATION: Back pain TECHNIQUE: Frontal and lateral views of the chest are obtained. FINDINGS: The heart size is normal. The pulmonary vasculature is normal. The lungs are clear. Mild scoliosis is present. IMPRESSION: 1. No acute pulmonary process. 2. Scoliosis
== END | disposition home or self-care (01) ==
LOC: RADXRMAIN 11:58
PROVIDERS: ATTEND Family Medicine
DX: J18.1 Lobar pneumonia, unspecified organism (principal); M41.9 Scoliosis, unspecified
CPT/HCPCS: 71046

== ENCOUNTER → 2024-04-16 | Outpatient (CLI) | payer MEDICAID ==
[2024-04-16 10:27] LABS: Basophils # (A) 0.04 X 10*3/uL (0.00-0.10); Basophils % (A) 0.8 %; Eosinophils # (A) 0.07 X 10*3/uL (0.04-0.35); Eosinophils % (A) 1.3 %; HCT 38.3 % (37.2-46.3); Lymphocytes # (A) 1.33 X 10*3/uL (0.90-5.00); Lymphocytes % (A) 25.4 %; MCH 25.4 pg (27.0-32.0); MCHC 31.3 g/dL (32.0-37.0); MCV 81.1 FL (80.0-97.0); Monocytes # (A) 0.41 X 10*3/uL (0.20-1.00); Monocytes % (A) 7.8 %; NRBC Per 100 WBC 0 X 10*3/uL (0.00-0.01); Neutrophils # (A) 3.37 X 10*3/uL (1.80-7.70); Neutrophils % (A) 64.3 %; Platelet Count 162 X 10*3/uL (140-440); RBC 4.72 X 10*6/uL (4.10-5.20); RDW 14.4 % (11.5-14.5); WBC 5.24 X 10*3/uL (4.50-10.00)
[2024-04-16 10:53] LABS: ALT 23 U/L (8-44); AST 23 U/L (13-35); Albumin/Globulin Ratio 2.08 Ratio (1.60-3.17); Alkaline Phosphatase 69 U/L (41-126); BUN/Creat Ratio 24.83 Ratio (12.00-20.00); Blood Urea Nitrogen 14.9 mg/dL (9.0-27.0); Calcium 9.9 mg/dL (8.7-10.3); Carbon Dioxide 24.6 mmol/L (21.6-31.8); Chloride 102 mmol/L (96-109); Chol/HDL Ratio 3.19 Ratio; Globulin 2.4 g/dL (1.6-3.3); Glucose 103 mg/dL (70-110); LDL Cholesterol,Calculated 82.9 mg/dL (0.0-131.0); Potassium 4.9 mmol/L (3.5-5.5); Sodium 139 mmol/L (135-145); T4, Free (Free Thyroxine) 1.12 ng/dL (0.80-1.80); Total Bilirubin 0.3 mg/dL (0.3-1.2); Total Protein 7.4 g/dL (6.2-8.2)
[2024-04-16 11:16] LABS: Erythrocyte Sedimentation Rate 14 mm/Hr (0-30)
== END | disposition home or self-care (01) ==
LOC: LABWHC1 07:18
PROVIDERS: ATTEND Nurse Practitioner
DX: Z00.00 Encounter for general adult medical examination without abnormal findings (principal); M19.041 Primary osteoarthritis, right hand; R53.83 Other fatigue
CPT/HCPCS: 36415; 80053; 80061; 82306; 84439; 84443; 84481; 85025; 85652